=== PATIENT | male | born 1975 | race Caucasian/White ===

== ENCOUNTER 2017-01-11 06:11 | Emergency (ER) | payer SELFPAY ==
[2017-01-11] MEDS ORDERED: Ketorolac INJ* 60 MG/2 ML VIAL IM ONE (08:05)
--- NOTE | 2017-01-11 08:14 | RAD ---
INDICATION: Medial left wrist pain extending to the proximal fifth metacarpal 2 days after a fall COMPARISON: None. TECHNIQUE: 3 views left wrist. REPORT: The visualized bones are properly aligned and well corticated. The joint spaces are normal.There is no fracture, dislocation or other focal osseous abnormality. IMPRESSION: Normal radiograph of the left wrist. If the patient's symptoms persist, follow-up imaging is recommended.
[2017-01-11 09:34] VITALS: BP 146/95
--- NOTE | 2017-01-14 14:24 | ED ---
Josep Fox Rebecca, scribed for Blaze Duncan MD on 01/11/17 at 0809 . Upper Extremity Pain - HPI Summary HPI Summary: Pt is a 41 y/o M who presents to ED c/o L wrist pain. Pt reports falling while at work on Monday (2 days ago), tripping over something and trying to catch himself. Confirms his boss is aware of him being at [facility]. Pt reports the pain began Monday night while sleeping, waking him up and that he took yesterday ( Monday) off work to rest the wrist. Has not taken any pain medication, but has applied ice. Pain is in the L wrist without radiation to the fingers and is currently moderate, ranked 7/10. Sx aggravated by movement, alleviated by nothing. Denies tingling or numbness in the fingers. No prior injuries to the L wrist. - History of Current Complaint Chief Complaint: EDExtremityUpper Stated Complaint: LEFT WRIST PAIN Time Seen by Provider: 01/11/17 07:55 Hx Obtained From: Patient Mechanism Of Injury: Fall From A Standing Position Onset/Duration: Started Days Ago, Still Present Severity Currently: Moderate - 7/10 Pain Location: Wrist - Left Aggravating Factor(s): Movement Alleviating Factor(s): Nothing Associated Signs & Symptoms: Positive: Negative Related History: Occupational Injury - Allergies/Home Medications Allergies/Adverse Reactions: Allergies Allergy/AdvReac Type Severity Reaction Status Date / Time No Known Allergies Allergy Verified 01/11/17 06:19 PMH/Surg Hx/FS Hx/Imm Hx Cardiovascular History: Reports: Hx Hypercholesterolemia Sensory History: Denies: Hx Contacts or Glasses, Hx Hearing Aid Opthamlomology History: Denies: Hx Contacts or Glasses - Surgical History Surgery Procedure, Year, and Place: right wrist Hx Anesthesia Reactions: No Infectious Disease History: No Infectious Disease History: Denies: Traveled Outside the [place] in Last 30 Days - Family History Known Family History: Positive: Hypertension - Social History Occupation: Employed Full-time - [employer] Use Type: Reports: None Review of Systems Negative: Fever, Chills Negative: Erythema Negative: Sore Throat Negative: Chest Pain Negative: Shortness Of Breath, Cough Negative: Abdominal Pain, Vomiting, Nausea Negative: dysuria, hematuria Positive: Arthralgia - L wrist pain s/p mechanical fall. Negative: Edema Negative: Rash Neurological: Other - Denies dizziness Negative: Numbness All Other Systems Reviewed And Are Negative: Yes Physical Exam - Summary Physical Exam Summary: Constitutional: Well-developed, Well-nourished, Alert. (-) Distressed Skin: Warm, Dry, Some bruising on the dorsum of the L hand, toward his pinky and ring fingers with mild LUE edema. HENT: Normocephalic; Atraumatic Eyes: Conjunctiva normal Neck: Musculoskeletal ROM normal neck. (-) JVD, (-) Stridor, (-) Tracheal deviation Cardio: Rhythm regular, rate normal, Heart sounds normal; Intact distal pulses; The pedal pulses are 2+ and symmetric. Radial pulses are 2+ and symmetric. (-) Murmur Pulmonary/Chest wall: Effort normal. (-) Respiratory distress, (-) Wheezes, (-) Rales Abd: Soft, (-) Tenderness, (-) Distension, (-) Guarding, (-) Rebound Musculoskeletal: Mild tenderness in the left snuffbox and pain with left wrist dorsiflexion Lymph: (-) Cervical adenopathy Neuro: Alert, Oriented x3 Psych: Mood and affect Normal Triage Information Reviewed: Yes Vital Signs On Initial Exam: Initial Vitals Temp Pulse Resp BP Pulse Ox 98.1 F 76 16 153/100 99 01/11/17 06:15 01/11/17 06:15 01/11/17 06:15 01/11/17 06:15 01/11/17 06:15 Vital Signs Reviewed: Yes Procedures - Splinting Location: Left wrist Hand-Made Type: orthoglass - 3 inch orthoglass, length of 28 cm Splint: thumb spica - Left Pre-Proc Neuro Vasc Exam: normal Post-Proc Neuro Vasc Exam: normal Diagnostics - Vital Signs Vital Signs Temp Pulse Resp BP Pulse Ox 01/11/17 06:30 98.1 F 76 16 153/100 99 01/11/17 06:15 98.1 F 76 16 153/100 99 - Laboratory Lab Statement: Any lab studies that have been ordered have been reviewed, and results considered in the medical decision making process. - Radiology Wrist XR Xray Interpretation: No Acute Changes - Radiologist: Normal radiograph of the left wrist. If the patient's symptoms persist, follow-up imaging is recommended. Radiology Interpretation Completed By: ED Physician - There appears to be a distal radius fracture that enters the joint space but it also appears to have some calcification so it may be an old injury., Radiologist Re-Evaluation - Re-Evaluation Second Eval Re-Evaluation Time: 09:14 Change: Improved Comment: Pt's pain is improved. Splinted the L wrist. Course/Dx - Course Assessment/Plan: Pt is a 41 y/o M who presents to ED c/o L wrist pain. Pt reports falling while at work on Monday (2 days ago), tripping over something and trying to catch himself. Confirms his boss is aware of him being at [facility]. Pt reports the pain began Monday night while sleeping, waking him up and that he took yesterday (Monday) off work to rest the wrist. Has not taken any pain medication, but has applied ice. Pain is in the L wrist without radiation to the fingers and is currently moderate, ranked 7/10. Sx aggravated by movement, alleviated by nothing. Denies tingling or numbness in the fingers. No prior injuries to the L wrist. In the ED course, pt was administered Toradol IM which improved sx. Wet read of L wrist XR by ED physician is that there appears to be a distal radius fracture that enters the joint space but it also appears to have some calcification so it may be an old injury. Radiologist read of wrist XR reveals no acute findings. Discussed and reviewed the film with Dr. Hubert Thompson (radiologist) who reports he does not identify a fracture and discussed the possibility of a carpal fracture. Patient will still be splinted (see procedure note). He will be D/C to home with Dx of wrist pain, an Rx for Ultram and a follow up with orthopedics in 3-5 days. He understands and agrees. Elevated BP noted and advised to follow up. Patient medications reviewed this visit. - Diagnoses Provider Diagnoses: Wrist pain - Physician Notifications Discussed Care of Patient With: Hubert Thompson Time Discussed With Above Provider: 08:20 Instructed by Provider To: Other - Reviewed the film and confirmed that he did not identify a fracture though discussed the possibility of a carpal fracture. Confirmed that the pt will still be splinted. Discharge - Discharge Plan Condition: Stable Disposition: HOME Prescriptions: traMADol TAB* [Ultram*] 25 mg PO Q6HR PRN #12 tab MDD 4 PRN Reason: Pain - Moderate To Severe Patient Education Materials: Wrist Injury (ED), Splint Care (ED) Forms: *Work Release Referrals: Harjit Garcia MD [Medical Doctor] - (Follow up with orthopedics in 3-5 days. ) Additional Instructions: RETURN TO THE EMERGENCY DEPARTMENT FOR CHANGING OR WORSENING SYMPTOMS The documentation as recorded by the Josep thrasher Rebecca accurately reflects the service I personally performed and the decisions made by me, Blaze Duncan MD.
== END 2017-01-11 09:33 | disposition home or self-care (01) ==
LOC: ED 06:11
DX: M25.532 Pain in left wrist (principal); E78.00 Pure hypercholesterolemia, unspecified
CPT/HCPCS: 96372; 99282; J1885

== ENCOUNTER 2018-09-25 12:23 | Emergency (ER) | payer BC ==
[2018-09-25 12:53] VITALS: BP 125/82
[2018-09-25] MEDS ORDERED: Fluorescein Sodium TOPICAL* 1 MG TEST STRIP OPHTHALMIC ONE (12:55)
[2018-09-25] MEDS ORDERED: Tetracaine 0.5% OPTH.SOL 4 ML* 1 DROP BTL BOTH EYES ONE (12:55)
--- NOTE | 2018-09-25 12:55 | UC ---
Eye Complaint HPI - HPI Summary HPI Summary: 42 yo male presents with RIGHT eye ?FB. He tells me that he was outside at work not doing much and a zechariah of wind blew. Since that time has had a FB sensation in his right eye. His tried to clean it and wash it out and felt a little better, but eye is red and watery now. Denies vision changes. - History of Current Complaint Chief Complaint: UCEye Stated Complaint: FB IN EYE Time Seen by Provider: 09/25/18 12:55 Hx Obtained From: Patient Onset/Duration: Sudden Onset Timing: Constant Severity Initially: Moderate Severity Currently: Moderate Pain Intensity: 7 Pain Scale Used: 0-10 Numeric - Allergies/Home Medications Allergies/Adverse Reactions: Allergies Allergy/AdvReac Type Severity Reaction Status Date / Time No Known Allergies Allergy Verified 05/02/17 09:59 PMH/Surg Hx/FS Hx/Imm Hx - Additional Past Medical History Additional PMH: None - Surgical History Surgical History: Yes Surgery Procedure, Year, and Place: RIGHT WRIST; - Family History Known Family History: Positive: Hypertension - Social History Occupation: Employed Full-time Lives: With Family Alcohol Use: Occasionally Substance Use Type: None Smoking Status (MU): Heavy Every Day Tobacco Smoker Type: Cigarettes Have You Smoked in the Last Year: Yes Household Exposure Type: Cigarettes Review of Systems All Other Systems Reviewed And Are Negative: Yes Constitutional: Positive: Negative Skin: Positive: Negative Eyes: Positive: Drainage, Eye Redness ENT: Positive: Negative Respiratory: Positive: Negative Cardiovascular: Positive: Negative Gastrointestinal: Positive: Negative Neurovascular: Positive: Negative Neurological: Positive: Negative Psychological: Positive: Negative Physical Exam - Summary Physical Exam Summary: GENERAL: WDWN. No pain distress. SKIN: No rashes, sores, lesions, or open wounds. HEENT: Head: AT/NC Eyes: EOM intact. PERRLA. RIGHT EYE: Moderate scleral injection. Mild clear tearing. No FBs appreciated. Fluorescein dye exam WNL without increase uptake or cyrus sign. Nose: NTTP maxillary and frontal sinus. NECK: Supple. Nontender. No lymphadenopathy. CHEST: No accessory muscle use. Breathing comfortably and in no distress. CV: Pulses intact. Cap refill <2seconds NEURO: Alert. PSYCH: Age appropriate behavior. Triage Information Reviewed: Yes Vital Signs: Initial Vital Signs Temp 98.1 F 09/25/18 12:46 Pulse 79 09/25/18 12:46 Resp 16 09/25/18 12:46 BP 125/82 09/25/18 12:46 Pulse Ox 98 09/25/18 12:46 Vital Signs Reviewed: Yes Eye Complaint Course/Dx - Course Course Of Treatment: Tetracaine was instilled into the eye and pt experienced complete relief. Dye exam WNL. No FB appreciated. The upper and lower eyelids were swept with a sterile q-tip. Suspect FB was removed prior to arrival here and he is having eye irritation from this - rx for polytrim - Differential Dx/Diagnosis Provider Diagnosis: Foreign body of right eye Discharge - Sign-Out/Discharge Documenting (check all that apply): Patient Departure All imaging exams completed and their final reports reviewed: No Studies - Discharge Plan Condition: Stable Disposition: HOME Prescriptions: Polymyx/Trimethoprim OPTH* [Polytrim OPHTH*] 1 drop RIGHT EYE TID #1 btl Patient Education Materials: Eye Foreign Body (ED) Referrals: Grecia Cancino MD [Primary Care Provider] - Additional Instructions: If you develop a fever, shortness of breath, chest pain, new or worsening symptoms - please call your PCP or go to the ED. - Billing Disposition and Condition Condition: STABLE Disposition: Home
== END 2018-09-25 13:40 | disposition home or self-care (01) ==
LOC: UCEAST 12:23
DX: T15.91XA Foreign body on external eye, part unspecified, right eye, initial encounter (principal); X58.XXXA Exposure to other specified factors, initial encounter; Y92.9 Unspecified place or not applicable; Y99.0 Civilian activity done for income or pay; F17.210 Nicotine dependence, cigarettes, uncomplicated
CPT/HCPCS: 99212; A9270-GY; G0463